=== PATIENT | male | born 1975 | race African-American/Black ===

== ENCOUNTER 2017-07-18 15:27 | Emergency (ER) | payer SELFPAY ==
--- NOTE | 2017-07-18 16:28 | RAD ---
PA AND LATERAL OF THE CHEST 07/18/17 INDICATION: Cough. FINDINGS: The lungs are clear. The cardiomediastinal silhouette is normal. No acute osseous abnormality is evid ent. The exam is similar to a comparison dated 04/10/15. IMPRESSION: No acute cardiopulmonary abnormality. POS: [facility]
[2017-07-18 16:31] LABS: Anisocytosis SLIGHT = 6-15 cells (100X) (0-5/hpf); Hematocrit 39.7 % (42.0-52.0); Mean Platelet Volume 7.2 fL (7.4-10.4); Microcytosis SLIGHT = 6-15 cells (100X) (0-5/hpf); Neutrophil 25 % (42-75); Reactive Lymphocytes 11 % (0-10); Red Blood Cell (RBC) Count 5.08 mill/uL (4.70-6.10); Target Cells SLIGHT = 2-5 cells (100X) (0-1/hpf); White Blood Cell (WBC) Count 7.4 thou/uL (4.8-10.8)
== END 2017-07-18 17:58 | disposition home or self-care (01) ==
LOC: SCSER 15:27
DX: B34.9 Viral infection, unspecified (principal); F17.210 Nicotine dependence, cigarettes, uncomplicated
CPT/HCPCS: 71020; 85025

== ENCOUNTER 2017-09-19 21:23 | Emergency (ER) | payer SELFPAY ==
[2017-09-19 22:43] LABS: #Lymphocytes 3.8 thou/uL (1.20-3.40); #Monocytes 0.6 thou/uL (0.11-0.59); #Neutrophils 6.7 thou/uL (1.40-6.50); %Basophils 0.3 % (0.0-1.0); %Eosinophils 0.2 % (0.0-10.0); %Monocytes 5.4 % (0.0-10.0); %Neutrophils 60.1 % (42.0-75.0); Hemoglobin 13.4 g/dL (14.0-18.0); Mean Corpuscular HGB CONC 33.6 g/dL (32.0-36.0); Mean Corpuscular Hemoglobin 26.5 pg (27.0-31.0); Mean Corpuscular Volume 78.9 fl (80.0-94.0); Mean Platelet Volume 7.4 fL (7.4-10.4); Platelet Count 184 thou/uL (130-400); RBC Distribution Width 14.7 % (11.5-14.5); Red Blood Cell (RBC) Count 5.04 mill/uL (4.70-6.10); White Blood Cell (WBC) Count 11.2 thou/uL (4.8-10.8)
[2017-09-19 22:59] LABS: ALT (SGPT) 26 U/L (8-55); AST (SGOT) 42 U/L (5-34); Albumin 4.3 g/dL (3.5-5.0); Alkaline Phosphatase 71 U/L (40-150); Anion Gap 10 mmol/L (10-20); BUN (Urea Nitrogen) 12 mg/dL (8.9-20.6); Bilirubin, Total 0.7 mg/dL (0.2-1.2); Calc. Creatinine Clearance 0 mL/min (70-130); Calcium 9.4 mg/dL (7.8-10.44); Carbon Dioxide 29 mmol/L (22-29); Chloride 102 mmol/L (98-107); Estimated GFR-MDRD 72; Globulin 3.6 g/dL (2.4-3.5); Glucose 122 mg/dL (70-105); Lipase 20 U/L (8-78); Protein, Total 7.9 g/dL (6.0-8.3); Sodium 137 mmol/L (136-145)
[2017-09-20] MEDS ORDERED: Ondansetron HCl/PF 4 MG/2 ML Vial ONE (00:04)
[2017-09-20] MEDS ORDERED: Mag-Al 1200 mg/1200 mg/30 ML UDCUP ONE (00:05)
[2017-09-20] MEDS ORDERED: Famotidine/PF 20 mg/2ml Vial ONE (00:05)
[2017-09-20] MEDS ORDERED: Lidocaine Viscous Sol 2% 15 ml UD Cup ONE (00:05)
[2017-09-20] MEDS ORDERED: Metoclopramide HCl 10 MG/2 ML VIAL ONE (02:08)
[2017-09-20] MEDS ORDERED: Acetaminophen 500 MG TAB ONE (02:08)
[2017-09-20] MEDS ORDERED: diphenhydrAMINE 50 MG/ML VIAL ONE (02:08)
[2017-09-20 02:50] LABS: Bilirubin Negative (Negative); Blood, Urine Negative (Negative); Clarity CLEAR (Clear); Glucose, Urine (Dipstick) Negative (Negative); Leukocyte Small (Negative); Nitrite Negative (Negative); Protein, Urine (Dipstick) Negative (Neg-Trace); Specific Gravity, Urine 1.008 (1.002-1.036)
[2017-09-20 02:53] LABS: Bacteria/HPF None Seen HPF (None Seen); Hyaline Casts/LPF 0-3 HYALINE CAST LPF (0-3 Hyaline); RBC/HPF 0-3 HPF (0-3); Squamous Epithelial None Seen HPF (0-3)
--- NOTE | 2017-09-20 07:15 | ULT ---
RIGHT UPPER QUADRANT ULTRASOUND: 09/20/2017 HISTORY: Upper abdominal pain after eating. COMPARISON: None. TECHNIQUE: Multiplanar napoles-scale sonographic imaging of the right upper quadrant obtained. FINDINGS: The imaged pancreas is unremarkable. The distal body and tail are obscured by bowel gas. No focal liver lesion is seen. The common bile duct measures 6 mm, upper limits of normal. The right kidney measures 10.3 cm in craniocaudal dimension and demonstrates no stone, hydronephrosis , or mass lesion. No gallbladder wall thickening or pericholecystic fluid. No gallstones are noted. The corn grower r eports a negative Velasco sign. IMPRESSION: Upper limits of normal common bile duct, measuring 6 mm. There is no evidence for cholelithiasis or cholecystitis. POS: [facility]
== END 2017-09-20 03:30 | disposition home or self-care (01) ==
LOC: ERS 21:23
DX: R11.2 Nausea with vomiting, unspecified (principal); R51 Headache; R19.7 Diarrhea, unspecified; Z71.6 Tobacco abuse counseling; B20 Human immunodeficiency virus [HIV] disease; F17.299 Nicotine dependence, other tobacco product, with unspecified nicotine-induced disorders
CPT/HCPCS: 36415; 76705; 80053; 81003; 81015; 83690; 85025; 96361; 96365; 96372; 96375; 99406; J1200; J2405; J2765; S0028